=== PATIENT | male | born 1960 | race Two or more races ===

== ENCOUNTER 2023-03-02 04:20 | Day surgery (SDC) | payer OTHER ==
[~2023-03-02] VITALS: Ht 172.7 cm; Wt 82.1 kg
[~2023-03-02 04:20] MED LIST: COZAAR25 MG PO; MEDROL8 MG PO; MULTIVIT PO; PREVAC PO; RELAGESIC TABL1 EACH PO; SYNTHROID50 MCG PO; VITAMIN B12 PO
== END 2023-03-02 12:00 | disposition home or self-care (01) ==
LOC: CIR.AMB 04:20
PROVIDERS: ATTEND Specialist
DX: K80.10 Calculus of gallbladder with chronic cholecystitis without obstruction (principal); Z20.822 Contact with and (suspected) exposure to COVID-19; I10 Essential (primary) hypertension; E03.9 Hypothyroidism, unspecified